=== PATIENT | male | born 1970 | race Two or more races ===

== ENCOUNTER → 2017-09-29 17:46 | Outpatient (CLI) | payer OTHER | END | disposition home or self-care (01) | LOC: LAB 17:46 | DX: R50.9 Fever, unspecified (principal); J11.1 Influenza due to unidentified influenza virus with other respiratory manifestations ==

== ENCOUNTER → 2017-09-29 17:48 | Outpatient (CLI) | payer OTHER | END | disposition home or self-care (01) | LOC: RAD 17:48 | DX: M54.2 Cervicalgia (principal) ==

== ENCOUNTER → 2017-09-29 | Outpatient (CLI) | payer OTHER ==
[~2017-09-29] VITALS: Ht 152.4 cm; Wt 102.1 kg
[~2017-09-29] MED LIST: ALLEGRA ALLERG180 MG PO; AMOX1TAB12 PO; GILTUSS TR TAB1 EACH PO; MEDROL4 MG PO; OMEGA 3 FISH OI1 CAP PO; TRICOR145 MG PO; ZYRTEC10 MG PO
== END | disposition home or self-care (01) ==
LOC: PPHC 15:20
DX: R51 Headache (principal); R11.0 Nausea; R42 Dizziness and giddiness; R50.9 Fever, unspecified

== ENCOUNTER 2018-10-02 09:39 | Outpatient (CLI) | payer OTHER | END 2018-10-02 11:27 | disposition home or self-care (01) | LOC: SONOGRAMA 09:39 → MAMO-SONO 10:15 → SONOGRAMA 11:27 | DX: K76.0 Fatty (change of) liver, not elsewhere classified (principal); R74.0 Nonspecific elevation of levels of transaminase and lactic acid dehydrogenase [LDH]; K75.81 Nonalcoholic steatohepatitis (NASH); K30 Functional dyspepsia ==

== ENCOUNTER 2018-10-02 10:07 | Outpatient (CLI) | payer OTHER | END 2018-10-02 10:20 | disposition home or self-care (01) | LOC: LAB 10:07 | DX: K76.0 Fatty (change of) liver, not elsewhere classified (principal); R74.0 Nonspecific elevation of levels of transaminase and lactic acid dehydrogenase [LDH]; K75.81 Nonalcoholic steatohepatitis (NASH); K30 Functional dyspepsia ==

== ENCOUNTER 2018-12-13 10:07 | Outpatient (CLI) | payer OTHER | END 2018-12-13 10:17 | disposition home or self-care (01) | LOC: LAB 10:07 | DX: K30 Functional dyspepsia (principal); K76.0 Fatty (change of) liver, not elsewhere classified; R74.0 Nonspecific elevation of levels of transaminase and lactic acid dehydrogenase [LDH]; K80.20 Calculus of gallbladder without cholecystitis without obstruction ==

== ENCOUNTER 2021-05-08 07:27 | Outpatient (CLI) | payer OTHER | END 2021-05-08 07:35 | disposition home or self-care (01) | LOC: RAD 07:27 | PROVIDERS: ATTEND Internal Medicine Rheumatology | DX: M79.642 Pain in left hand (principal); M79.641 Pain in right hand ==

== ENCOUNTER 2022-09-11 07:27 | Outpatient (CLI) | payer OTHER | END 2022-09-11 13:58 | disposition home or self-care (01) | LOC: SONOGRAMA 07:27 | PROVIDERS: ATTEND Urology | DX: B20 Human immunodeficiency virus [HIV] disease (principal); K82.8 Other specified diseases of gallbladder; R31.21 Asymptomatic microscopic hematuria; R35.0 Frequency of micturition ==

== ENCOUNTER 2023-01-14 12:41 | Outpatient (CLI) | payer OTHER | END 2023-01-14 12:44 | disposition home or self-care (01) | LOC: NUCLEAR 12:41 | PROVIDERS: ATTEND Family Medicine | DX: M81.0 Age-related osteoporosis without current pathological fracture (principal); B20 Human immunodeficiency virus [HIV] disease ==

== ENCOUNTER 2023-07-31 07:55 | Outpatient (CLI) | payer OTHER | END 2023-07-31 08:03 | disposition home or self-care (01) | LOC: RAD 07:55 | DX: G89.29 Other chronic pain (principal) ==

== ENCOUNTER 2024-04-05 07:54 | Outpatient (CLI) | payer OTHER | END 2024-04-05 07:55 | disposition home or self-care (01) | LOC: SONOGRAMA 07:54 | PROVIDERS: ATTEND Internal Medicine Gastroenterology | DX: R74.9 Abnormal serum enzyme level, unspecified (principal); K76.89 Other specified diseases of liver ==

== ENCOUNTER 2024-06-06 08:49 | Outpatient (CLI) | payer OTHER | END 2024-06-06 09:07 | disposition home or self-care (01) | LOC: MRI 08:49 | DX: M53.3 Sacrococcygeal disorders, not elsewhere classified (principal) | CPT/HCPCS: 72195 ==

== ENCOUNTER 2024-09-26 08:33 | Outpatient (CLI) | payer OTHER | END 2024-09-26 08:37 | disposition home or self-care (01) | LOC: RAD 08:33 | PROVIDERS: ATTEND Internal Medicine Rheumatology | DX: M51.9 Unspecified thoracic, thoracolumbar and lumbosacral intervertebral disc disorder (principal) ==

== ENCOUNTER 2024-10-10 09:18 | Outpatient (CLI) | payer OTHER | END 2024-10-10 09:32 | disposition home or self-care (01) | LOC: MRI 09:18 | DX: M54.50 Low back pain, unspecified (principal) | CPT/HCPCS: 72148 ==

== ENCOUNTER 2025-07-20 08:03 | Outpatient (CLI) | payer OTHER | END 2025-07-20 08:11 | disposition home or self-care (01) | LOC: SONOGRAMA 08:03 | DX: E04.1 Nontoxic single thyroid nodule (principal) ==